=== PATIENT | female | born 1960 | race Caucasian/White ===

== ENCOUNTER 2016-08-06 12:03 | Emergency (ER) | payer MEDICAID ==
[~2016-08-06] VITALS: Ht 167.6 cm; Wt 66.5 kg
[~2016-08-06 12:03] MED LIST: ALBU8.5H3 INH; AMIT50TA PO; CLON0.1T12 PO; ENAL20TA PO; ENAL20TA68 PO; ESCI10TA10 PO; LEVO750T26 PO; LORA10CA PO; LURA60TA PO; LURA80TA PO; NICO1PAT4 TD; PSYCH MED; SUCR1ORA11 PO; ZOLP-413 PO; ZOLP10TA PO; [UNRECOGNIZED DRUG - REMARK]; [UNRECOGNIZED DRUG - REMARK]
[2016-08-06 12:08] VITALS: BP 113/75
== END 2016-08-06 12:52 ==
LOC: ED 12:30
DX: S01.91XD Laceration without foreign body of unspecified part of head, subsequent encounter (principal); Z53.21 Procedure and treatment not carried out due to patient leaving prior to being seen by health care provider; X58.XXXA Exposure to other specified factors, initial encounter; Y93.89 Activity, other specified; Y92.89 Other specified places as the place of occurrence of the external cause; Y99.8 Other external cause status

== ENCOUNTER 2016-09-18 19:01 | Emergency (ER) | payer MEDICAID ==
[~2016-09-18] VITALS: Ht 167.6 cm; Wt 62.0 kg
[2016-09-18 19:05] VITALS: BP 110/70
== END 2016-09-18 23:28 | disposition home or self-care (01) ==
LOC: ED 19:42
DX: F10.229 Alcohol dependence with intoxication, unspecified (principal); I10 Essential (primary) hypertension; J45.909 Unspecified asthma, uncomplicated; F31.9 Bipolar disorder, unspecified; Z88.1 Allergy status to other antibiotic agents; Z88.0 Allergy status to penicillin
CPT/HCPCS: 99283